=== PATIENT | female | born 1975 | race Caucasian/White ===

== ENCOUNTER 2017-03-13 19:18 | Emergency (ER) | payer BC, OTHER ==
[~2017-03-13] VITALS: Ht 162.6 cm; Wt 53.8 kg
[~2017-03-13 19:18] MED LIST: CELEBREX200 MG PO; FLEXERIL10 MG PO; FLEXERIL5 MG PO; HYDROCODON-ACE1 EAC7 PO; HYDROCODON-ACE1 EACH; MEDROXYPRO150 MG/1 M IM; NAPROXEN500 MG PO; NOHOMEMEDS; PREDNISONE20 MG PO; PREDNISONE5 M1 PO; QUETIAPINE FUMA25 MG PO; TRAMADOL HCL50 MG PO; ULTRAM50 MG PO; VALIUM5 MG PO; VENLAFAXINE225 MG PO; VICODIN,LORT1 TABLET PO
[2017-03-13] MEDS ORDERED: NORCO 5/3251 TABLET PO (21:33)
[2017-03-13] MEDS ORDERED: ULTRACET1 TABLET PO (21:33)
[2017-03-13 21:47] VITALS: BP 122/74
== END 2017-03-13 21:48 | disposition home or self-care (01) ==
LOC: EME 19:18 → EXP 19:18
DX: M25.512 Pain in left shoulder (principal); G89.29 Other chronic pain; Z88.6 Allergy status to analgesic agent
CPT/HCPCS: 73030; 99281; 99283; J8540

== ENCOUNTER 2018-07-14 21:01 | Emergency (ER) | payer BC ==
[~2018-07-14] VITALS: Ht 162.6 cm; Wt 55.9 kg
[~2018-07-14 21:01] MED LIST changes: +NORCO 5/3251 TABLET PO; +ULTRACET1 TABLET PO
[2018-07-14 21:44] LABS: HEMATOCRIT 42.5 % (36.0-46.0); HEMOGLOBIN 14.1 G/DL (11.9-15.5); MCH 29.9 PG (29.0-34.0); MCHC 33.2 G/DL (30.0-36.0); PLATELET COUNT 297 K/uL (156-360); RBC DIS.WIDTH-CV 12.7 % (11.8-14.6); RBC DIS.WIDTH-SD 42.1 % (39-53); RED BLOOD COUNT 4.72 M/uL (3.80-5.20); WHITE BLOOD COUNT 10.5 K/uL (4.1-10.2)
[2018-07-14 21:55] LABS: CHLORIDE 106 mEq/L (99-109); POTASSIUM 4.3 mEq/L (3.7-5.4); SODIUM 140 mEq/L (136-147)
[2018-07-14 21:57] LABS: GLUCOSE 88 mg/dL (70-99)
[2018-07-14 22:00] LABS: CREATININE 0.7 mg/dL (0.6-1.3); GFR ESTIMATE (CALCULATED) > 59 mL/min/
[2018-07-14 22:01] LABS: UREA NITROGEN (BUN) 10 mg/dL (9-23)
[2018-07-14 22:05] LABS: TROP-I INTERPRETATION NEGATIVE; TROPONIN-I < 0.01 ng/mL (0.0-0.30)
[2018-07-14 23:30] LABS: APPEARANCE CLEAR ((CLEAR)); BILIRUBIN NEGATIVE; BLOOD SMALL; COLOR YELLOW ((YELLOW)); GLUCOSE (STRIP) NEGATIVE; KETONES 5; LEUKOCYTES NEGATIVE; NITRITE NEGATIVE; PROTEIN (STRIP) NEGATIVE; SPECIFIC GRAVITY 1.026 (1.000-1.030)
[2018-07-14 23:40] LABS: BACTERIA NONE SEEN /HPF; EPITHELIAL CELLS RARE /HPF; MUCUS 1+ /LPF; UCUL ADDED? NO; WHITE BLOOD CELLS 0-5 /HPF (0-5)
[2018-07-15] VITALS: BP 102/62
== END 2018-07-15 00:01 | disposition home or self-care (01) ==
LOC: EME 21:01
PROVIDERS: Physician Assistant
DX: R42 Dizziness and giddiness (principal); R51 Headache; R00.1 Bradycardia, unspecified; Z87.820 Personal history of traumatic brain injury; F17.200 Nicotine dependence, unspecified, uncomplicated
CPT/HCPCS: 70450; 80048; 81003; 84484; 85027; 93005; 99281; 99284

== ENCOUNTER 2018-07-24 22:10 | Emergency (ER) | payer BC ==
[~2018-07-24] VITALS: Ht 162.6 cm; Wt 55.9 kg
[2018-07-25 00:21] LABS: BASOPHIL (%) 0.5 % (0-1); BASOPHIL COUNT 0.1 K/uL (0-0.1); EOSINOPHIL (%) 4.4 % (0-5); EOSINOPHIL COUNT 0.5 K/uL (0-0.3); HEMATOCRIT 42.2 % (36.0-46.0); IMMATURE GRANULOCYTE (%) 0.3 % (0.0-0.7); LYMPHOCYTE (%) 31.2 % (15-42); LYMPHOCYTE COUNT 3.2 K/uL (1.0-2.8); MCH 29.6 PG (29.0-34.0); MCHC 33.2 G/DL (30.0-36.0); MCV 89.2 FL (83-99); MONOCYTE (%) 6.9 % (3-12); MONOCYTE COUNT 0.7 K/uL (0-0.8); NEUTROPHIL (%) 56.7 % (45-76); NEUTROPHIL COUNT 5.8 K/uL (1.8-6.4); PLATELET COUNT 286 K/uL (156-360); RBC DIS.WIDTH-CV 12.6 % (11.8-14.6); RBC DIS.WIDTH-SD 41.1 % (39-53); RED BLOOD COUNT 4.73 M/uL (3.80-5.20); WHITE BLOOD COUNT 10.3 K/uL (4.1-10.2)
[2018-07-25 00:34] LABS: CHLORIDE 109 mEq/L (99-109); POTASSIUM 3.9 mEq/L (3.7-5.4); SODIUM 141 mEq/L (136-147)
[2018-07-25 00:35] LABS: MAGNESIUM 2.6 mg/dL (1.3-2.7)
[2018-07-25 00:36] LABS: GLUCOSE 106 mg/dL (70-99)
[2018-07-25 00:40] LABS: CREATININE 0.8 mg/dL (0.6-1.3); GFR ESTIMATE (CALCULATED) > 59 mL/min/; PHOSPHORUS 3.4 mg/dL (2.5-4.9)
[2018-07-25 00:41] LABS: UREA NITROGEN (BUN) 9 mg/dL (9-23)
[2018-07-25 00:43] LABS: CREATINE KINASE 78 IU/L (1-294)
[2018-07-25 02:49] VITALS: BP 119/64
[2018-07-25 10:43] LABS: HEMOGLOBIN A1c (GLYCOHEMOGLOB) 5.4 % (Below 5.7)
== END 2018-07-25 02:49 | disposition home or self-care (01) ==
LOC: EME 22:10
PROVIDERS: Emergency Medicine
DX: R20.2 Paresthesia of skin (principal); F17.200 Nicotine dependence, unspecified, uncomplicated; Z88.6 Allergy status to analgesic agent
CPT/HCPCS: 72131; 80048; 82550; 83036; 83735; 84100; 85025; 99281; 99285